=== PATIENT | female | born 1975 | race African-American/Black ===

== ENCOUNTER 2016-09-01 08:15 | Emergency (ER) | payer OTHER ==
[~2016-09-01] VITALS: Ht 149.9 cm; Wt 83.9 kg
[~2016-09-01 08:15] MED LIST: NORCO 5-325 TA1 EACH PO; NORFLEX100 MG PO; NYQUIL D COLD295 ML; PENICILLIN VK500 MG PO; TENORMIN25 MG PO; ULTRAM 50MG TAB50 MG PO; VALIUM2 MG PO
[2016-09-01] MEDS ORDERED: TENORMIN25 MG PO (09:33)
[2016-09-01 10:15] VITALS: BP 135/79
[2016-09-01] MEDS ORDERED: ULTRAM 50MG TAB50 MG PO (10:23)
== END 2016-09-01 10:15 | disposition home or self-care (01) ==
LOC: ER 08:15
DX: S29.012A Strain of muscle and tendon of back wall of thorax, initial encounter (principal); M25.512 Pain in left shoulder; I10 Essential (primary) hypertension; M41.9 Scoliosis, unspecified; Z88.8 Allergy status to other drugs, medicaments and biological substances; X50.0XXA Overexertion from strenuous movement or load, initial encounter; Y93.89 Activity, other specified; Y92.89 Other specified places as the place of occurrence of the external cause; Y99.9 Unspecified external cause status

== ENCOUNTER 2016-11-23 17:21 | Emergency (ER) | payer OTHER ==
[~2016-11-23] VITALS: Ht 149.9 cm; Wt 86.2 kg
[2016-11-23 17:26] VITALS: BP 147/87
[2016-11-23] MEDS ORDERED: MOBIC15 MG PO (18:21)
== END 2016-11-23 18:38 | disposition home or self-care (01) ==
LOC: ER 17:21
DX: M79.602 Pain in left arm (principal); I10 Essential (primary) hypertension; F10.99 Alcohol use, unspecified with unspecified alcohol-induced disorder; Z88.8 Allergy status to other drugs, medicaments and biological substances

== ENCOUNTER 2018-12-17 21:12 | Emergency (ER) | payer OTHER ==
[~2018-12-17] VITALS: Ht 149.9 cm; Wt 74.8 kg
[~2018-12-17 21:12] MED LIST changes: +MOBIC15 MG PO
[2018-12-17] MEDS ORDERED: ADVIL200 M3 PO (21:17)
[2018-12-17 21:44] LABS: URINE BILIRUBIN NEGATIVE (Negative); URINE BLOOD NEGATIVE (Negative); URINE CLARITY CLEAR; URINE COLOR YELLOW; URINE GLUCOSE-RANDOM* NEGATIVE (Negative); URINE KETONES NEGATIVE (Negative); URINE LEUKOCYTES-REFLEX NEGATIVE (Negative); URINE NITRITE-REFLEX NEGATIVE (Negative); URINE PROTEIN (DIPSTICK) NEGATIVE (Negative); URINE SPECIFIC GRAVITY >= 1.030 (1.005-1.035); URINE UROBILINOGEN 0.2 E.U./dl (0.2-1.0)
[2018-12-17] MEDS ORDERED: NORFLEX100 MG PO (21:54)
[2018-12-17] MEDS ORDERED: MOBIC15 MG PO (21:54)
[2018-12-18 04:22] VITALS: BP 132/76
== END 2018-12-17 23:10 | disposition home or self-care (01) ==
LOC: ER 21:12
PROVIDERS: Nurse Practitioner Family
DX: S29.012A Strain of muscle and tendon of back wall of thorax, initial encounter (principal); M41.9 Scoliosis, unspecified; I10 Essential (primary) hypertension; Z87.891 Personal history of nicotine dependence; Z88.8 Allergy status to other drugs, medicaments and biological substances; Z98.890 Other specified postprocedural states; X58.XXXA Exposure to other specified factors, initial encounter; Y92.89 Other specified places as the place of occurrence of the external cause; Y93.89 Activity, other specified; Y99.8 Other external cause status

== ENCOUNTER 2020-01-21 21:43 | Emergency (ER) | payer OTHER ==
[~2020-01-21] VITALS: Ht 149.9 cm; Wt 81.7 kg
[~2020-01-21 21:43] MED LIST changes: +ADVIL200 M3 PO
[2020-01-21 22:24] LABS: URINE BILIRUBIN NEGATIVE (Negative); URINE BLOOD NEGATIVE (Negative); URINE CLARITY CLEAR; URINE COLOR YELLOW; URINE GLUCOSE-RANDOM* NEGATIVE (Negative); URINE KETONES NEGATIVE (Negative); URINE LEUKOCYTES-REFLEX NEGATIVE (Negative); URINE NITRITE-REFLEX NEGATIVE (Negative); URINE PROTEIN (DIPSTICK) NEGATIVE (Negative); URINE SPECIFIC GRAVITY >= 1.030 (1.005-1.035); URINE UROBILINOGEN 0.2 E.U./dl (0.2-1.0)
[2020-01-21] MEDS ORDERED: NORFLEX100 MG PO (23:04)
[2020-01-21] MEDS ORDERED: NAPROSYN500 MG PO (23:04)
[2020-01-21 23:24] VITALS: BP 168/96
== END 2020-01-21 23:25 | disposition home or self-care (01) ==
LOC: ER 21:43
PROVIDERS: Emergency Medicine
DX: M54.5 Low back pain (principal); M41.9 Scoliosis, unspecified; I10 Essential (primary) hypertension; Z79.899 Other long term (current) drug therapy; Z87.891 Personal history of nicotine dependence; Z88.8 Allergy status to other drugs, medicaments and biological substances

== ENCOUNTER 2020-09-24 17:11 | Emergency (ER) | payer OTHER ==
[~2020-09-24] VITALS: Ht 149.9 cm; Wt 77.1 kg
[~2020-09-24 17:11] MED LIST changes: +NAPROSYN500 MG PO
[2020-09-24] MEDS ORDERED: LOSARTAN POTAS100 MG PO (17:39)
[2020-09-24] MEDS ORDERED: IBU600 MG PO (19:34)
[2020-09-24] MEDS ORDERED: FLEXERIL PO (19:35)
[2020-09-24 20:21] VITALS: BP 142/89
== END 2020-09-24 20:21 | disposition home or self-care (01) ==
LOC: ER 17:11
DX: S33.5XXA Sprain of ligaments of lumbar spine, initial encounter (principal); S70.01XA Contusion of right hip, initial encounter; I10 Essential (primary) hypertension; Z87.891 Personal history of nicotine dependence; Z88.8 Allergy status to other drugs, medicaments and biological substances; V89.2XXA Person injured in unspecified motor-vehicle accident, traffic, initial encounter; Y93.89 Activity, other specified; Y92.481 Parking lot as the place of occurrence of the external cause; Y99.8 Other external cause status

== ENCOUNTER 2020-11-27 19:36 | Emergency (ER) | payer OTHER ==
[~2020-11-27] VITALS: Ht 149.9 cm; Wt 86.2 kg
[~2020-11-27 19:36] MED LIST changes: +FLEXERIL PO; +IBU600 MG PO; +LOSARTAN POTAS100 MG PO
[2020-11-27 21:18] VITALS: BP 142/98
--- NOTE | 2020-11-28 12:22 | EKG ---
[address] [address] ELECTROCARDIOGRAM REPORT Name: TELMA ROPER Room #: DEP [facility]ITAL[facility]myne#: [id number] Admission: 11/27/20 Attend Phys: Discharge: 11/27/20 Date of : 79 Report #: [id number] [facility] ED Test Date: 2020-11-27 Test Time: 20:39:42 Pat Name: TELMA ROPER Department: Room: Gender: F Re Etcher: hailey : 1975 Requested By: Jarvis Guillory Order Number: [id number] MD: Vinny Rubio Measurements Intervals [place] Rate: 78 P: 29 VT: 157 QRS: 16 QRSD: 87 T: 40 QT: 393 QTc: 448 Interpretive Statements Sinus rhythm No previous ECG available for comparison Electronically Signed On 11-28-2020 12:21:55 CDT by Vinny Rubio [email or web address] <ELECTRONICALLY SIGNED> By: Vinny Rubio MD 11/28/20 1221 38 38 Vinny Rubio MD /EPI
== END 2020-11-27 21:18 | disposition home or self-care (01) ==
LOC: ER 19:36
DX: J06.9 Acute upper respiratory infection, unspecified (principal); Z20.822 Contact with and (suspected) exposure to COVID-19; I10 Essential (primary) hypertension; Z79.1 Long term (current) use of non-steroidal anti-inflammatories (NSAID); Z79.899 Other long term (current) drug therapy; Z88.8 Allergy status to other drugs, medicaments and biological substances; Z87.891 Personal history of nicotine dependence

== ENCOUNTER 2021-05-15 12:16 | Emergency (ER) | payer OTHER ==
[~2021-05-15] VITALS: Ht 149.9 cm; Wt 81.7 kg
[2021-05-15 12:26] VITALS: BP 143/89
[2021-05-15] MEDS ORDERED: NAPROSYN500 MG PO (13:34)
== END 2021-05-15 13:54 | disposition home or self-care (01) ==
LOC: ER 12:16
DX: M25.572 Pain in left ankle and joints of left foot (principal); I10 Essential (primary) hypertension; Z98.890 Other specified postprocedural states; Z79.899 Other long term (current) drug therapy; Z88.8 Allergy status to other drugs, medicaments and biological substances; Z87.891 Personal history of nicotine dependence

== ENCOUNTER 2021-05-26 21:11 | Emergency (ER) | payer OTHER ==
[~2021-05-26] VITALS: Ht 149.9 cm; Wt 81.7 kg
[2021-05-26 21:12] VITALS: BP 136/87
[2021-05-26] MEDS ORDERED: BACTRIM DS TAB1 EAC1 PO (21:32)
== END 2021-05-26 22:01 | disposition home or self-care (01) ==
LOC: ER 21:11
DX: N61.1 Abscess of the breast and nipple (principal); L02.416 Cutaneous abscess of left lower limb; I10 Essential (primary) hypertension; Z98.890 Other specified postprocedural states; Z79.899 Other long term (current) drug therapy; Z88.8 Allergy status to other drugs, medicaments and biological substances; Z87.891 Personal history of nicotine dependence